=== PATIENT | male | born 1990 | race Caucasian/White ===

== ENCOUNTER → 2017-10-05 | Outpatient (CLI) | payer OTHER ==
[2017-10-08 07:21] LABS: CHLAMYDIA TRACH RNA*** NOT DETECTED (NOT DETECTED); GC (NEIS GONORRHOEAE)RNA** NOT DETECTED (NOT DETECTED)
[2017-10-09 11:10] LABS: HERPES SIMPLEX AB IGG-1 < 0.90 INDEX (< 0.90); HERPES SIMPLEX AB IGG-2 3.91 INDEX (< 0.90)
== END | disposition home or self-care (01) ==
LOC: C.LAB 17:22
PROVIDERS: ATTEND Internal Medicine
DX: Z72.51 High risk heterosexual behavior (principal)

== ENCOUNTER → 2018-03-19 | Outpatient (CLI) | payer OTHER ==
--- NOTE | 2018-03-19 11:45 | DIAGNOSTIC IMAGING REPORT ---
RIGHT SHOULDER 3 VIEWS CLINICAL HISTORY: Right shoulder pain. FINDINGS: 3 views of the right shoulder are obtained. No prior studies are available for comparison at the time of dictation. The skeletal structures are well mineralized. No fracture or dislocation is seen. The glenohumeral and acromioclavicular joints are normal in appearance. The overlying soft tissues are within normal limits. The visualized right lung parenchyma appears clear. IMPRESSION: Unremarkable radiographic assessment of the right shoulder. Electronically signed by: Jemal Alvarez M.D. 03/19/2018 11:43 AM Dictated Date/Time: 03/19/2018 11:42 AM
== END | disposition home or self-care (01) ==
LOC: C.RAD1850 11:14
PROVIDERS: ATTEND Nurse Practitioner Family
DX: M25.511 Pain in right shoulder (principal); Y99.0 Civilian activity done for income or pay

== ENCOUNTER 2025-07-26 16:44 | Inpatient (IN) ==
--- NOTE | 2025-07-26 17:05 | Emergency Department Note ---
Impression & Plan Cellulitis, Failure of outpatient treatment ED Provider Note ED Provider Note NAME: ALFIE SCHAFER AGE:34 SEX: Male : 1990 ARRIVES VIA: Private vehicle INFORMANT: Patient ED PROVIDER(s): Linda Hartman DO CHIEF COMPLAINT: Left foot infection HPI: This is a 34-year-old male who presents to the Emergency Department due to concern for worsening left foot infection. Patient states he began noticing mild discomfort in the foot on Sunday. He states by he noticed redness and an apparent lesion to the dorsal aspect of the left foot. He did go and was seen at urgent care and was started on Bactrim. He states he did outline the affected. He states since then the area has worsened despite taking the antibiotic. He states he had subjective fevers and chills. No vomiting or diarrhea. Patient is concerned for a spider bite after consulting [employer] although did not visibly see any spiders. No history of MRSA. Patient states he is not a diabetic. No other recent trauma or change in activity. PAST MEDICAL HISTORY:See Below PAST SURGICAL HISTORY:See Below FAMILY HISTORY:See Below SOCIAL HISTORY:See Below HOME MEDICATIONS:See Below ALLERGIES:See Below VITALS:See Below PHYSICAL EXAMINATION: GENERAL: alert, well appearing, well nourished, no distress, non-toxic EYE EXAM: normal conjunctiva, PERRL and EOM's grossly intact OROPHARYNX: no exudate, no erythema, lips, buccal mucosa, and tongue normal and mucous membranes are moist NECK: supple, no nuchal rigidity, no adenopathy, non-tender LUNGS: Clear to auscultation. Normal chest wall mechanics, no w/r/r HEART: no murmurs, S1 normal and S2 normal ABDOMEN: abdomen soft, non-tender, normo-active bowel sounds, no masses, no rebound or guarding. BACK: Back is symmetrical on inspection and there is no deformity, no midline tenderness, no CVA tenderness. SKIN: no rashes, petechiae, orbruising UPPER EXTREMITIES: upper extremities are grossly normal. FROM, nml pulses b/l. LOWER EXTREMITIES: No pitting edema. FROM, nml pulses b/l. LEft foot with large erythematous region to the dorsal aspect of the left foot with central area of unroofed and weeping vesicles/bullae, no necrosis, no crepitus, erythema extends outside previously demarcated line of both posteriorly and anteriorly, no other ulcerations, no petechiae, normal cap refill, no joint effusions, no ascending lymphangitic streaking NEURO EXAM: Normal sensorium, cranial nerves II-XII grossly intact, normal speech, no facial droop,nogross weakness of arms, no gross weakness of legs. Gross sensation intact. No ataxia. Vital Signs: reviewed and remarkable Differential Diagnosis: cellulitis, abscess, MRSA infection, DVT, necrotizing fasciitis, dermatitis, drug eruption, as well as others were entertained. MEDICAL DECISION MAKING: THis is a 34 yo male who presents with concern for left foot infection. He was tachycardic on arrival but VS otherwise stable. Labs drawn and sent, IV established, cultures obtained and he was monitored on telemetry. He was started on IVF and given IV antibiotics. He was sent for CT foot additionally. Given concern for appearance of the involved area, progression despite outpatient antibiotics, and concern for evolving sepsis, case discussed with the hospitalist team for additional evaluation and mgmt. Consultation(s): 1930: Discussed with Dr. Antunez, [place] hospitalist team, for additional evaluation and mgmt. ER Treatment Provided: See below Diagnostics Interpreted By Me: -ECG: Sinus tachycardia at 115, normal axis, normal intervals, no acute ST/T wave changes -Cardiac Monitoring: An order was placed for continuous cardiac monitoring. The monitor shows a rate of 102 with sinus tachycardia rhythm. -Laboratory studies: As stated above and show below. -Imaging studies: ct foot:no clear abscess or osteo Triage Nursing Note Reviewed Prior/Outside Records Reviewed Past Med/Surg History Problem List (Updated 07/27/25 @ 21:40 by Linda Hartman DO) Failure of outpatient treatment (Acute) Cellulitis (Acute) Abscess of left foot Cellulitis of left foot Overweight (BMI 25.0-29.9) Tinea pedis Erectile dysfunction HSV (herpes simplex virus) infection Medical History Vitamin D deficiency Class 1 obesity due to excess calories in adult Encounter for vasectomy counseling Soft tissue mass Eczema of right external ear Infertility counseling Surgical History H/O wisdom tooth extraction Family History Unknown Hypertension Heart disease Stroke syndrome Diabetes Hyperlipidemia Social History Smoking Status: Light tobacco smoker Second Hand Exposure: Yes; Do You Dip or Chew Tobacco: No; Hx Alcohol Use: Yes Alcohol type: beer, wine and hard liquor Alcohol Intake Frequency: 2-3 x/Week Hx Substance Use: No Preferred Language: Bengali Communication Ability: Effective Crew Car Driver Required: No marital status: Single Current Living Situation: Parent Current Living Situation Comment: Lives with father current occupational status: employed 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 Feels Safe at Home: Yes Safety Concerns: Feels Safe At This Time Diet: regular caffeine: Yes Dental Care, Regularly: Yes Physical Activity Frequency: Does not Exercise Assistive Devices: None Allergies Allergies Allergy/AdvReac Type Severity Reaction Status Date / Time No Known Allergies Allergy Verified 06/22/25 09:36 Home Meds Home Medications Medication Instructions Recorded Confirmed clotrimazole 1 % topical cream 1 applic topical BID PRN Itching 07/26/25 07/26/25 sulfamethoxazole 800 1 tab PO BID 07/26/25 07/26/25 mg-trimethoprim 160 mg tablet Previous Rx's Medication Instructions Recorded tadalafil 10 mg tablet (Cialis) 10 mg PO DAILY PRN sexual activity 06/22/25 #6 tabs valacyclovir 1 gram tablet 1,000 mg PO DAILY suppressive 06/22/25 therapy #90 tabs Results & Data (ED) Vital Signs Vital Signs - 24 hr 07/26/25 16:49 07/26/25 17:31 07/26/25 17:31 Temperature 37.0 C Temperature Source Temporal Artery Scan Pulse Rate 112 H 106 H Pulse Rate [Right Finger] 102 H Pulse Rate from SpO2 Sensor Respiratory Rate 18 16 16 Respiratory Effort / Characteristics Non-Labored Spontaneous Non-Labored Spontaneous Respiratory Depth Normal Normal Blood Pressure 160/98 H Blood Pressure [Left Arm] 152/84 H Blood Pressure Mean 118 Blood Pressure Mean [Left Arm] 106 Blood Pressure Position Sitting Pulse Oximetry 97 96 96 Oxygen Delivery Method Room Air Room Air Room Air Sepsis Recent Fever Within 48 Hours No Sepsis New/Unexplained Change in Mental Status N/A Sepsis Action Taken by Nursing No Action Required 07/26/25 17:53 07/26/25 19:12 Temperature Temperature Source Pulse Rate 107 H 82 Pulse Rate [Right Finger] Pulse Rate from SpO2 Sensor 82 Respiratory Rate 21 Respiratory Effort / Characteristics Respiratory Depth Blood Pressure Blood Pressure [Left Arm] Blood Pressure Mean Blood Pressure Mean [Left Arm] Blood Pressure Position Pulse Oximetry 96 Oxygen Delivery Method Room Air Sepsis Recent Fever Within 48 Hours Sepsis New/Unexplained Change in Mental Status Sepsis Action Taken by Nursing Laboratory Data 07/27/25 06:48 07/27/25 06:48 Lab Results 07/26/25 Range/Units 17:18 WBC 17.20 H (4.8-10.8) K/ul RBC 5.20 (4.70-6.10) M/uL Hgb 14.6 (14.0-18.0) g/dl Hct 44.1 (42.0-52.0) % MCV 84.8 (80.0-100.0) fL MCH 28.1 (25.0-34.0) pg MCHC 33.1 (32.0-36.0) g/dL RDW Std Deviation 38.4 (36.4-46.3) fL RDW Coeff of Michelle 12.5 (11.5-14.5) % Plt Count 269 (130-400) K/uL MPV 9.7 (9.4-12.4) fL Immature Gran % (Auto) 0.3 % Neut % (Auto) 82.5 % Lymph % (Auto) 8.5 % Carson % (Auto) 8.2 % Eos % (Auto) 0.2 % Baso % (Auto) 0.3 % Neut # (Auto) 14.19 H (1.40-6.50) K/uL Lymph # (Auto) 1.46 (1.20-3.40) K/uL Carson # (Auto) 1.41 H (0.11-0.59) K/uL Eos # (Auto) 0.03 (0.00-0.50) K/uL Baso # (Auto) 0.06 (0.00-0.20) K/uL Immature Gran # (Auto) 0.05 (0.01-0.20) K/uL PT 10.9 (9.0-12.0) Seconds INR 1.0 (0.9-1.1) Sodium 136 (136-145) mmol/L Potassium 3.9 (3.5-5.1) mmol/L Chloride 105 (98-107) mmol/L Carbon Dioxide 24 (21-32) mmol/L Anion Gap 7 (3-11) BUN 13 (6-23) mg/dl Creatinine 1.00 (0.6-1.4) mg/dl Est Cr Clr Drug Dosing 118.8 ml/min eGFR 101.28 BUN/Creatinine Ratio 13.0 (10-20) Glucose 109 H (70-99(Fasting)) mg/dl Lactate 1.7 (0.4-2.0) mmol/L Calcium 9.2 (8.6-10.3) mg/dl Magnesium 2.3 (1.7-2.4) mg/dl Total Bilirubin 0.6 (0.2-1.0) mg/dl Direct Bilirubin 0.2 (0-0.2) mg/dl AST 21 (13-39) U/L ALT 16 (7-52) U/L Alkaline Phosphatase 77 (34-104) U/L Total Creatine Kinase 165 (30-223) U/L Total Protein 7.7 (6.0-8.3) gm/dl Albumin 4.1 (3.4-5.0) gm/dl Procalcitonin 0.02 (0-0.5) ng/ml Administered Medications Acetaminophen (Acetaminophen 325 Mg Tab) 650 mg PO Q4H PRN PRN Reason: pain/fever Stop: 08/25/25 21:23 Last Admin: 07/27/25 20:25 Dose: 650 mg Documented By: Admin: 07/27/25 01:01 Dose: 650 mg Documented By: emmanuelle Enoxaparin Sodium (Enoxaparin Inj 40 Mg/0.4 Ml Syr) 40 mg SQ HS JONNIE Stop: 08/25/25 21:29 Last Admin: 07/27/25 20:23 Dose: 40 mg Documented By: Admin: 07/26/25 21:42 Dose: 40 mg Documented By: emmanuelle Piperacillin Sod/Tazobactam Sod (Zosyn) 4.5 gm in 100 mls @ 25 mls/hr IV Q8H JONNIE; Protocol Stop: 08/03/25 03:59 Last Admin: 07/27/25 20:23 Dose: 25 mls/hr Documented By: Infusion: 07/27/25 15:52 Dose: Infused Documented By: Admin: 07/27/25 11:51 Dose: 25 mls/hr Documented By: Infusion: 07/27/25 07:31 Dose: Infused Documented By: Admin: 07/27/25 03:17 Dose: 25 mls/hr Documented By: emmanuelle Daptomycin 700 mg/ Syringe 14 mls @ 7 mls/min IV Q24H JONNIE; Protocol Stop: 08/03/25 17:59 Last Admin: 07/27/25 18:06 Dose: 7 mls/min Documented By: ARNEL Valacyclovir HCl (Valacyclovir Hcl 500 Mg Tablet) 1,000 mg PO DAILY JONNIE Stop: 08/26/25 08:59 Last Admin: 07/27/25 09:05 Dose: 1,000 mg Documented By: ARNEL Discontinued Medications Acetaminophen (Acetaminophen 325 Mg Tab) 650 mg PO NOW STA Stop: 07/27/25 10:09 Last Admin: 07/27/25 10:27 Dose: 650 mg Documented By: ARNEL Bupivacaine HCl (Bupivacaine 0.5 % 5 Mg/1 Ml Mpf 30ml Vial) Confirm Administered Dose 30 ml .ROUTE .STK-MED ONE Stop: 07/27/25 15:48 Last Admin: 07/27/25 16:46 Dose: 17 ml Documented By: [id number] Sodium Chloride (Nss) 1,000 mls @ 999 mls/hr IV .Q1H1M JONNIE Stop: 07/26/25 19:15 Last Infusion: 07/26/25 20:25 Dose: Infused Documented By: Admin: 07/26/25 18:48 Dose: 999 mls/hr Documented By: Infusion: 07/26/25 18:29 Dose: Infused Documented By: Admin: 07/26/25 17:28 Dose: 999 mls/hr Documented By: ZEV Ceftriaxone Sodium (Rocephin) 2,000 mg in 50 mls @ 100 mls/hr IV NOW STA Stop: 07/26/25 18:12 Last Infusion: 07/26/25 18:25 Dose: Infused Documented By: Admin: 07/26/25 17:55 Dose: 100 mls/hr Documented By: ZEV Daptomycin 500 mg/ Syringe 10 mls @ 5.75 mls/min IV NOW ONE; Protocol Stop: 07/26/25 18:01 Last Admin: 07/26/25 18:21 Dose: 5.75 mls/min Documented By: ZEV Piperacillin Sod/Tazobactam Sod (Zosyn) 4.5 gm in 100 mls @ 200 mls/hr IV ONE ONE; Protocol Stop: 07/26/25 21:59 Last Infusion: 07/26/25 22:29 Dose: Infused Documented By: Admin: 07/26/25 21:43 Dose: 200 mls/hr Documented By: emmanuelle Lactated Ringer's (Lr) 1,000 mls @ 125 mls/hr IV .Q8H JONNIE Stop: 07/27/25 16:29 Last Infusion: 07/27/25 19:23 Dose: Infused Documented By: Infusion: 07/27/25 17:26 Dose: 125 mls/hr Documented By: Infusion: 07/27/25 15:26 Dose: 0 mls/hr Documented By: Admin: 07/27/25 09:04 Dose: 125 mls/hr Documented By: Infusion: 07/27/25 08:50 Dose: Infused Documented By: Admin: 07/27/25 00:50 Dose: 125 mls/hr Documented By: emmanuelle Ioversol (Optiray 320 100ml) 93 ml IV ONCE ONE Stop: 07/26/25 18:06 Last Admin: 07/26/25 18:05 Dose: 93 ml Documented By: DAV Vancomycin HCl (Vancomycin Hcl 1000mg/20ml Vial) Confirm Administered Dose 50 mg .ROUTE .STK-MED ONE Stop: 07/27/25 16:38 Last Admin: 07/27/25 16:46 Dose: 1,000 mg Documented By: [id number] Imaging Data Radiologist's Impression: Foot CT 07/26/25 17:20 CT extremity left foot, with contrast History: Pain/weakness Comparison: None Technique: CT performed of the extremity with IV contrast. Dose reduction techniques were achieved by using automatic exposure control and/or adjustment of mA and/or kV according to patient size and/or use of iterative reconstruction technique. Findings: No fracture or dislocation. Joint spaces are normally aligned. Prominent soft tissue swelling overlying the dorsum of the foot. There appears to be a small skin based lesion, presumably representing the lesion or bite described in the history. Subjacent to the lesion in the subcutaneous tissues is an area of fluid, measuring 2.4 x 1.2 cm in the coronal plane, and approximately 1.9 cm in the AP dimension. The underlying bone is unremarkable. No aggressive osseous lesion. Impression: Extensive subcutaneous edema of the dorsum of the foot, where there is a tiny skin based lesion. Subjacent to the lesion, is a subcutaneous area of fluid, which appears incompletely well-formed, however which may represent phlegmon, and possibly an early or developing abscess, is not excluded. Electronically signed by Vinod Honeycutt 07-26-2025 7:00 PM Discharge Plan Visit Data Chief Complaint: Bite Stated Complaint: SPIDER BITE ON L FOOT ED Provider: Linda Hartman Discharge Problem: Cellulitis, Failure of outpatient treatment Patient Disposition: Admitted As Inpatient Condition: Fair Discharge Instructions Interventions: ED Discharge Assessment Last Done: 07/26/25 21:08
[2025-07-26] MEDS: SODIUM CHLORIDE 0.9% 1,000 ML IV SCH (17:28)
[2025-07-26 17:36] LABS: Hematocrit (blood only) 44.1 % (42.0-52.0); Hemoglobin 14.6 g/dl (14.0-18.0); Immature Granulocytes # (auto) 0.05 K/uL (0.01-0.20); Immature Granulocytes % (auto) 0.3 %; Mean Corpuscular Hemoglobin 28.1 pg (25.0-34.0); Mean Corpuscular Volume 84.8 fL (80.0-100.0); Platelet Count 269 K/uL (130-400); RDW Standard Deviation 38.4 fL (36.4-46.3); Red Blood Count 5.20 M/uL (4.70-6.10); White Blood Count 17.20 K/ul (4.8-10.8)
[2025-07-26] MEDS ORDERED: DAPTOmycin 575 MG in SYRINGE 0 ML IV ONE (17:54)
[2025-07-26 17:55] LABS: Alanine Aminotransferase 16.0 U/L (7-52); Albumin Level 4.1 gm/dl (3.4-5.0); Alkaline Phosphatase 77.0 U/L (34-104); Anion Gap 7.0 (3-11); Bilirubin,Total 0.6 mg/dl (0.2-1.0); Blood Urea Nitrogen 13.0 mg/dl (6-23); Calcium 9.2 mg/dl (8.6-10.3); Carbon Dioxide 24.0 mmol/L (21-32); Chloride 105.0 mmol/L (98-107); Creatine Kinase 165.0 U/L (30-223); Creatinine Clr Calc Pharmacy 118.8 ml/min; Glucose 109.0 mg/dl (70-99(Fasting)); Magnesium 2.3 mg/dl (1.7-2.4); Potassium 3.9 mmol/L (3.5-5.1); Sodium 136.0 mmol/L (136-145); Total Protein 7.7 gm/dl (6.0-8.3)
[2025-07-26] MEDS: cefTRIAXone SODIUM 2,000 MG/50 ML BAG IV STA (17:55)
[2025-07-26 18:01] LABS: INR 1.0 (0.9-1.1); Prothrombin Time 10.9 Seconds (9.0-12.0)
[2025-07-26] MEDS: OPTIRAY 320 100ml IV ONE (18:05)
[2025-07-26] MEDS: DAPTOmycin 500 MG in SYRINGE 0 ML IV ONE (18:21)
--- NOTE | 2025-07-26 19:00 | CT Scan Report ---
CT extremity left foot, with contrast History: Pain/weakness Comparison: None Technique: CT performed of the extremity with IV contrast. Dose reduction techniques were achieved by using automatic exposure control and/or adjustment of mA and/or kV according to patient size and/or use of iterative reconstruction technique. Findings: No fracture or dislocation. Joint spaces are normally aligned. Prominent soft tissue swelling overlying the dorsum of the foot. There appears to be a small skin based lesion, presumably representing the lesion or bite described in the history. Subjacent to the lesion in the subcutaneous tissues is an area of fluid, measuring 2.4 x 1.2 cm in the coronal plane, and approximately 1.9 cm in the AP dimension. The underlying bone is unremarkable. No aggressive osseous lesion. Impression: Extensive subcutaneous edema of the dorsum of the foot, where there is a tiny skin based lesion. Subjacent to the lesion, is a subcutaneous area of fluid, which appears incompletely well-formed, however which may represent phlegmon, and possibly an early or developing abscess, is not excluded. Electronically signed by Vinod Honeycutt 07-26-2025 7:00 PM
--- NOTE | 2025-07-26 19:19 | History & Physical Report ---
Date of Service July 26, 2025 Assessment & Plan (1) Cellulitis of left foot: Plan 34-year-old male PMHx HSV, tinea pedis, and ED presenting for wound to the top of his L foot. His ED evaluation is significant for leukocytosis of 17.2 but with normal lactate, procalcitonin, and CK. L foot CT revealed subcutaneous edema and area that may represent phlegmon versus abscess. Admission for IV antibiotics for cellulitis with possible developing abscess versus phlegmon. #Cellulitis of left foot History worsening skin wound to top of L foot, unclear if insect bite, expanding erythema x 3-4 days [employer]. Not meeting criteria for sepsis at admission, mildly tachycardic on and off, but otherwise hemodynamically stable. Pain well controlled. No additional symptoms. Received Ceftriaxone, Daptomycin, and 2L NSS in ED. - CBC leukocytosis 17.2; PT/NR WNL; CMP grossly unremarkable; lactate 1.7, procalcitonin 0.02, CK 165 - CBC am - Blood + wound cx pending - CT L foot extensive subcutaneous edema and area that may represent phlegmon versus abscess - Zofran prn N/V - Acetaminophen prn fever/pain - Zosyn + Daptomycin IV - Consider ID consult #HSV- Valacyclovir - continue at admission, follow renal function, BMP am #ED- Tadalafil - HOLD Dispo: Admit, med/sx VTE Prophylaxis: Lovenox This document was dictated utilizing Mar[employer]. Please excuse any grammatical errors that may be secondary to use of this software. Admission and Anticipated Discharge Date Admission Date: 07/26/2025 History of Present Illness Chief Complaint: L foot infection Primary Care Provider: Dorian Cottrell, 34-year-old male PMHx HSV, tinea pedis, and ED presenting for wound to the top of his L foot. Reports that 3-4 days [employer] he noticed that on the top of his L foot he had a wound that appeared erythematous and had a pinpoint black lesion in the center most portion of it. Over the course of days leading up to arrival, the erythema and edema continued to worsen. He was seen by urgent care the day [facility] and provided with Bactrim which he took a total of 3 doses of so far. He states that he does not recall injury or an insect/spider bite to the area. He does keep his work boots on the landing strip outside of his home door, in the garage, but always has socks on prior to placing his foot in the boots. He denies know tick bites. He does admit to chills but no documented fevers. Took IBU and Advil ~ 1200 the day of arrival. Reports the discomfort is manageable, and he does not have any numbness/tingling to his LLE (or elsewhere). He has not had any calf pain or edema bilaterally. Overall, feels well. 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 He is able to ambulate on the limb without difficulties. Denies CP, SOB, palpitations, abdominal pain, N/V/D/C, fevers, URI symptoms, LUTS, weakness, syncope, or falls. He has not had this happen before. ED evaluation reveals CBC with leukocytosis to 17.2, H&H stable; PT/INR WNL; CMP WNL with exception of glucose 109; lactate 1.7; CK1 65; procalcitonin 0.02; L foot CT extensive subcutaneous edema of the dorsum of the foot, subcutaneous area of fluid may represent phlegmon versus developing abscess; EKG sinus tachycardia with possible LAE at 115 bpm.; Provided with 2L NSS, daptomycin 500 mg IV, and ceftriaxone 2 g IV in ED. Please see Dr. Antunez's attestation for adjustments/additions to treatment plan. Allergies Allergy/AdvReac Type Severity Reaction Status Date / Time No Known Allergies Allergy Verified 06/22/25 09:36 Home Medications Medication Instructions Recorded Confirmed Type tadalafil 10 mg tablet (Cialis) 10 mg PO DAILY PRN sexual activity 06/22/25 07/26/25 Rx #6 tabs valacyclovir 1 gram tablet 1,000 mg PO DAILY suppressive 06/22/25 07/26/25 Rx therapy #90 tabs clotrimazole 1 % topical cream 1 applic topical BID PRN Itching 07/26/25 07/26/25 History sulfamethoxazole 800 1 tab PO BID 07/26/25 07/26/25 History mg-trimethoprim 160 mg tablet Past Med/Surg History Problem List (Updated 07/26/25 @ 20:03 by Laith Foley PA-C) Cellulitis of left foot Overweight (BMI 25.0-29.9) Tinea pedis Erectile dysfunction HSV (herpes simplex virus) infection Medical History Vitamin D deficiency Class 1 obesity due to excess calories in adult Encounter for vasectomy counseling Soft tissue mass Eczema of right external ear Infertility counseling Surgical History H/O wisdom tooth extraction Family History Unknown Hypertension Heart disease Stroke syndrome Diabetes Hyperlipidemia Social History Smoking Status: Never smoker Second Hand Exposure: Yes; Do You Dip or Chew Tobacco: No; Hx Alcohol Use: Yes Alcohol type: beer, wine and hard liquor Alcohol Intake Frequency: 2-3 x/Week Hx Substance Use: No Preferred Language: Mozambican Communication Ability: Effective Foot Orthopedist Required: No marital status: Single Current Living Situation: Parent Current Living Situation Comment: Lives with father current occupational status: employed 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 Feels Safe at Home: Yes Safety Concerns: Feels Safe At This Time Diet: regular caffeine: Yes Dental Care, Regularly: Yes Physical Activity Frequency: Does not Exercise Assistive Devices: None Review of Systems 2 Review of Systems: All systems reviewed & are unremarkable except as noted in Subjective Physical Exam 2 Physical Exam: General: No acute distress Skin: Warm and dry; LLE with erythematous and edematous lesion on dorsum of foot, no streaking (see image) Head: Normocephalic, atraumatic Eyes: PERRL, conjunctivae clear, sclera non-icteric ENT: External ear and ear canal without swelling; nose atraumatic; good dentition, tongue normal appearance, pharynx normal Neck: Supple, no LAD Cardio: RRR, no M/G/R, S1 and S2 normal Resp: No respiratory distress, Lungs CTA in all lobes bilaterally, no wheezes, rales, or rhonchi Abdomen: Soft, symmetric, nontender; No masses or hepatosplenomegaly; Bowel sounds normoactive MSK: No deformities; pulses palpable and equal; mild LLE edema at foot at site of wound; no calf tenderness or calf size discrepancies Neuro: Awake, alert; Sensation intact bilaterally; CN grossly intact Psych: Appropriate mood and affect; good judgement and insight. Results & Data Results & Data Vital Signs (Past 12 Hours) Vital Signs Temp Pulse Pulse Resp BP BP Pulse Ox 07/26/25 17:53 107 H 07/26/25 17:31 102 H 16 152/84 H 96 07/26/25 17:31 106 H 16 96 07/26/25 16:49 37.0 C 112 H 18 160/98 H 97 O2 Del Method 07/26/25 17:53 07/26/25 17:31 Room Air 07/26/25 17:31 Room Air 07/26/25 16:49 Room Air Laboratory Results 07/26/25 17:45 Gram Stain - Pending Foot,Left Wound Culture - Pending 07/26/25 17:28 Aerobic Blood Culture - Pending Blood Anaerobic Blood Culture - Pending 07/26/25 17:18 Aerobic Blood Culture - Pending Blood Anaerobic Blood Culture - Pending 07/26/25 17:18 WBC 17.20 H RBC 5.20 Hgb 14.6 Hct 44.1 MCV 84.8 MCH 28.1 MCHC 33.1 RDW Std Deviation 38.4 RDW Coeff of Michelle 12.5 Plt Count 269 MPV 9.7 Immature Gran % (Auto) 0.3 Neut % (Auto) 82.5 Lymph % (Auto) 8.5 Beckham % (Auto) 8.2 Eos % (Auto) 0.2 Baso % (Auto) 0.3 Neut # (Auto) 14.19 H Lymph # (Auto) 1.46 Beckham # (Auto) 1.41 H Eos # (Auto) 0.03 Baso # (Auto) 0.06 Immature Gran # (Auto) 0.05 PT 10.9 INR 1.0 Sodium 136 Potassium 3.9 Chloride 105 Carbon Dioxide 24 Anion Gap 7 BUN 13 Creatinine 1.00 Est Cr Clr Drug Dosing 118.8 eGFR 101.28 BUN/Creatinine Ratio 13.0 Glucose 109 H Lactate 1.7 Calcium 9.2 Magnesium 2.3 Total Bilirubin 0.6 Direct Bilirubin 0.2 AST 21 ALT 16 Alkaline Phosphatase 77 Total Creatine Kinase 165 Total Protein 7.7 Albumin 4.1 Procalcitonin 0.[address] 07/26/25 17:20 CT extremity left foot, with contrast History: Pain/weakness Comparison: None Technique: CT performed of the extremity with IV contrast. Dose reduction techniques were achieved by using automatic exposure control and/or adjustment of mA and/or kV according to patient size and/or use of iterative reconstruction technique. Findings: No fracture or dislocation. Joint spaces are normally aligned. Prominent soft tissue swelling overlying the dorsum of the foot. There appears to be a small skin based lesion, presumably representing the lesion or bite described in the history. Subjacent to the lesion in the subcutaneous tissues is an area of fluid, measuring 2.4 x 1.2 cm in the coronal plane, and approximately 1.9 cm in the AP dimension. The underlying bone is unremarkable. No aggressive osseous lesion. Impression: Extensive subcutaneous edema of the dorsum of the foot, where there is a tiny skin based lesion. Subjacent to the lesion, is a subcutaneous area of fluid, which appears incompletely well-formed, however which may represent phlegmon, and possibly an early or developing abscess, is not excluded. Electronically signed by Vinod Honeycutt 07-26-2025 7:00 PM Medications Administered 2L NSS Daptomycin 500 mg IV Ceftriaxone 2 g IV ECG Additional Comments: Sinus tachycardia, possible LAE 115 bpm, VT 136, QRS 84, QT/QTc 308/426, PRT 49/56/38 Code Status & VTE Plan Code Status Full Supervising Physician Co-Signing Physician Notes Patient seen and examined, chart reviewed, case discussed with KAILEE Ozuna and I agree with the assessment and plan as above. In brief, patient is a 34yo male presenting with progressive infection on left foot. Unsure if it may have started with a spider bite? Has been progressing. On exam patient is afebrile, NAD Wound on LLE as above, area of erythema and warmth, open lesion with purulent drainage. No crepitus, bullae or streaking Labs and images reviewed Assessment/Plan -Daptomycin and Zosyn for now -Monitor for improvement -Follow cultures -LR added 125mL/hr x 2L -Remainder as above PG Care Time/CCT Total # of Minutes Spent Total Time Spent with Patient: Total time spent is greater than 50% in coordination of care (as documented) at patient's floor/unit and/or counseling patient: Coding Level of Care Code 13987 INT INP/OBS CARE 3/75MIN Diagnoses Cellulitis of left foot L03.116
[2025-07-26] MEDS ORDERED: MELATONIN 3 MG TAB PO PRN (21:24)
[2025-07-26] MEDS ORDERED: POLYETHYLENE (MIRALAX) 17 GM PACK PO PRN (21:24)
[2025-07-26] MEDS ORDERED: ONDANSETRON INJ 2 MG/ML 2 ML VIAL IV PRN (21:24)
[2025-07-26] MEDS: ENOXAPARIN INJ 40 MG/0.4 ML SYR SQ SCH (21:42)
[2025-07-26] MEDS: PIPERACILLIN/TAZOBACTAM 4.5 GM/100 ML BAG IV ONE (21:43)
[2025-07-27] MEDS: LACTATED RINGER'S 1,000 ML IV SCH (00:50)
[2025-07-27] MEDS: ACETAMINOPHEN 325 MG TAB PO PRN (01:01)
[2025-07-27] MEDS: PIPERACILLIN/TAZOBACTAM 4.5 GM/100 ML BAG IV SCH (03:17)
[2025-07-27 07:02] LABS: Hematocrit (blood only) 39.9 % (42.0-52.0); Hemoglobin 13.9 g/dl (14.0-18.0); Mean Corpuscular Hemoglobin 29.7 pg (25.0-34.0); Mean Corpuscular Volume 85.3 fL (80.0-100.0); Platelet Count 237 K/uL (130-400); RDW Standard Deviation 38.5 fL (36.4-46.3); Red Blood Count 4.68 M/uL (4.70-6.10); White Blood Count 14.24 K/ul (4.8-10.8)
[2025-07-27 07:37] LABS: Anion Gap 6.0 (3-11); Blood Urea Nitrogen 10.0 mg/dl (6-23); Calcium 8.5 mg/dl (8.6-10.3); Carbon Dioxide 25.0 mmol/L (21-32); Chloride 106.0 mmol/L (98-107); Creatinine Clr Calc Pharmacy 129.4 ml/min; Glucose 111.0 mg/dl (70-99(Fasting)); Potassium 4.0 mmol/L (3.5-5.1); Sodium 137.0 mmol/L (136-145)
--- NOTE | 2025-07-27 09:44 | Hospitalist Progress Note ---
Date of Service July 27, 2025 Assessment & Plan (1) Cellulitis of left foot: Plan 34-year-old male PMHx HSV, tinea pedis, and ED presenting for wound to the top of his L foot. His ED evaluation is significant for leukocytosis of 17.2 but with normal lactate, procalcitonin, and CK. L foot CT revealed subcutaneous edema and area that may represent phlegmon versus abscess. Patient was admitted for IV antibiotics for cellulitis and possible developing abscess versus phlegmon. #Cellulitis of left foot | ? 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 Not meeting criteria for sepsis at admission, mildly tachycardic on and off, but otherwise hemodynamically stable. Pain well controlled. No additional symptoms. Received Ceftriaxone, Daptomycin, and 2L NSS in ED. Leukocytosis, WBC trend: 17.2 -> 14.2 Follow current blood/wound cultures CT L foot extensive subcutaneous edema and area that may represent phlegmon versus abscess Acetaminophen as needed for fever/pain Zosyn 4.5 mg IV q8h Daptomycin 500 mg IV q24h Daily wound care Wound care nurse consult appreciated Podiatry consult appreciated in the setting of potential necrosis from spider bite Will plan for OR base I&D on the afternoon of 07/27 NPO prior to operation If patient clinically deteriorates or worsens following I&D, will plan for left foot MRI and touch base with infectious disease #HSV- Valacyclovir - continue at admission, follow renal function, BMP am #ED- Tadalafil - HOLD Dispo: Continued stay on MedSurg VTE Prophylaxis: Lovenox This document was dictated utilizing [employer]. Please excuse any grammatical errors that may be secondary to use of this software. Admission and Anticipated Discharge Date Admission Date: July 26, 2025 Subjective Mr. Taylor reports he is still having a "burning" pain on the dorsal aspect of his left foot. He rates the pain 5 out of 10 at present, and reports that it is worse with movements. He reports that is not limiting his mobility, and he has been able to get up to use the restroom throughout the day. No radiation of pain to the ankle or up the leg. No prior history of MRSA infections. Patient began having purulent drainage from the wound yesterday. He first noticed redness on his foot last , but did not notice the "black aguirre" on the dorsal aspect of his foot until Sunday around 3:30 PM. He reported it was rapidly expanding and he started marking it with a marker. Patient reports she does not go to the gym or any other place where he might have picked up a MRSA infection. However he did see a spider in his house recently, and is unsure if it was potentially a brown recluse or a gibson spider. 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 While he denies fevers at home, he woke up on Sunday morning with "chills". ROS: Patient endorses chills, and pain in the dorsal aspect of his left foot. Patient denies fevers, chest pain, SOB, abdominal pain, N/V/D, or numbness or tingling in the left foot. Review of Systems Review of Systems: See HPI above Physical Exam Physical Exam: General: no acute distress; pleasant affect; non-toxic appearing; well- nourished; cooperative; SpO2 98% on RA HEENT: normocephalic, atraumatic; no scleral icterus; PERRLA; vision and hearing grossly intact Neck: supple; no lymphadenopathy; trachea midline Skin: warm, dry without signs of tenting; no cyanosis; no rashes, bruising, lesions, or erythema noted CV: chest wall NTP; RRR; S1/S2 normal; no murmurs/rubs/gallops; pulses intact and symmetric at radial, DP, and PT Lungs: no acute respiratory distress; symmetrical chest wall expansion; clear breath sounds across all lung johnson w/o adventitious sounds; no wheezing ABD: Soft, NTP; BS present; no rebound/guarding; no distention MSK: no tics or fasciculations; no edema noted in the LEs b/l, nonerythematous Left foot: Dorsal aspect left foot is erythematous/edematous; mildly TTP; fluid- filled pocket appreciated over the dorsal aspect of the foot; recently bandaged; left ankle is NTP; no lymphangitis or streaking appreciated; patient demonstrates ability to wiggle toes, plantarflex, and dorsiflex without limited mobility; NV intact Neuro: A&Ox3; normal mood and affect; fluent speech; no focal deficits; patient reports sensation is intact and symmetric in lower extremities bilaterally/feeling touch at the toes Results & Data Results & Data Vital Signs (Past 12 Hours) Vital Signs Temp Pulse Resp BP Pulse Ox O2 Del Method 07/27/25 07:15 36.7 C 60 16 132/79 98 Room Air PG Care Time/CCT Total # of Minutes Spent Total Time Spent with Patient: Total time spent is greater than 50% in coordination of care (as documented) at patient's floor/unit and/or counseling patient: [place] [address] SUB INP/OBS CARE 2/35MIN Patient Type Established History Comprehensive Exam Comprehensive Medical Decision Making Moderate Complexity Diagnoses Cellulitis of left foot L03.116
--- NOTE | 2025-07-27 10:14 | Electrocardiogram Report ---
Test Reason : Blood Pressure : */* mmHG Vent. Rate : 115 BPM Atrial Rate : 115 BPM P-R Int : 136 ms QRS Dur : 84 ms QT Int : 308 ms P-R-T Axes : 49 56 36 degrees QTcB Int : 426 ms Sinus tachycardia Possible Left atrial enlargement Borderline ECG No previous ECGs available Confirmed by Velasquez Teresa ([id number]) on 07/27/2025 10:13:43 AM Referred By: REFERRED SELF Confirmed By: Velasquez Teresa
[2025-07-27] MEDS: ACETAMINOPHEN 325 MG TAB PO STA (10:27)
--- NOTE | 2025-07-27 13:47 | Podiatry Consultation ---
Date of Consultation July 27, 2025 Assessment & Plan (1) Cellulitis of left foot: (2) Abscess of left foot: Plan On clinical exam I am expressing fluid from what appears to be multiple slightly compartmentalized areas within the subcutaneous tissue of the dorsum of the left foot. Patient is added to the operating room schedule for OR based incision and drainage of the left foot this afternoon. He reports he did have piece of dry toast and an egg for breakfast around 7:00 this morning. Patient remained n.p.o. from breakfast until postop I&D. -White blood count is improved from 17.2 on admission to 14.2 today - CT of the left foot showing subcutaneous fluid collection at the dorsum of the foot measuring 2.4 x 1.2 x 1.9 cm. Underlying bone is unremarkable. - Blood culture 07/26/2025: Pending - Culture left foot 07/26/2025: Preliminary result growing Staph aureus. Sensitivities pending - Okay to weight-bear as tolerated the left foot. History of Present Illness Reason for Consultation: Abscess dorsal left foot Attending Physician: Chalo Manjarrez History of Present Illness Patient reports area of soft tissue irritation to the dorsum of the left foot first noticed this past Sunday with a small central wound and mild erythema and edema which progressed until Sunday. Denies trauma to the area of injury. Reports fever and chills. Denies nausea, vomiting, shortness of breath, chest pain, diarrhea. On Sunday patient was seen by urgent care and received a prescription for Bactrim. He reports taking 3 doses of Bactrim and woke up Sunday morning with increased redness and swelling as well as drainage from the right foot which prompted to visit the emergency department. In the emergency department he is found to have leukocytosis with a white count of 17.2. Wound culture and blood cultures collected in the emergency department. CT exam of the left foot showing subcutaneous edema and abscess to the dorsal foot. Patient is admitted and initiated on IV Zosyn and daptomycin. Allergies Allergy/AdvReac Type Severity Reaction Status Date / Time No Known Allergies Allergy Verified 06/22/25 09:36 Home Medications Medication Instructions Recorded Confirmed Type tadalafil 10 mg tablet (Cialis) 10 mg PO DAILY PRN sexual activity 06/22/25 07/26/25 Rx #6 tabs valacyclovir 1 gram tablet 1,000 mg PO DAILY suppressive 06/22/25 07/26/25 Rx therapy #90 tabs clotrimazole 1 % topical cream 1 applic topical BID PRN Itching 07/26/25 07/26/25 History sulfamethoxazole 800 1 tab PO BID 07/26/25 07/26/25 History mg-trimethoprim 160 mg tablet Patient History Medical History Vitamin D deficiency Class 1 obesity due to excess calories in adult Encounter for vasectomy counseling Soft tissue mass Eczema of right external ear Infertility counseling Surgical History H/O wisdom tooth extraction Family History Unknown Hypertension Heart disease Stroke syndrome Diabetes Hyperlipidemia Social History Smoking Status: Never smoker Second Hand Exposure: Yes; Do You Dip or Chew Tobacco: No; Hx Alcohol Use: Yes Alcohol type: beer, wine and hard liquor Alcohol Intake Frequency: 2-3 x/Week Hx Substance Use: No Preferred Language: Chadian Communication Ability: Effective Transcript Clerk Required: No marital status: Single Current Living Situation: Parent Current Living Situation Comment: Lives with father current occupational status: employed current occupation: [employer] Feels Safe at Home: Yes Safety Concerns: Feels Safe At This Time Diet: regular caffeine: Yes Dental Care, Regularly: Yes Physical Activity Frequency: Does not Exercise Assistive Devices: None Review of Systems Review of Systems: Reports fever and chills prior to admission. No issues since time of admission. Denies nausea, vomiting, fever, chills, shortness of breath, chest pain. Reports mild to moderate pain in the left foot. Physical Exam Physical Exam: Const: Appears well developed and well nourished. No signs of acute distress present. CV: Extremities: No cyanosis or edema. Capillary refill time is less than 2 seconds all digits of the bilateral foot. Posterior tibial and dorsalis pedis pulses are palpable bilateral. Neuro: Sensation intact to light touch in all areas of the foot and ankle. Psych: Mood/Affect: Mood is normal. Affect is normal. Cognition: Orientation is intact to person, place and time. Focused lower extremity musculoskeletal exam: Leg: No pain with compression of the calf muscle. Ankles: Normal to inspection and palpation. No swelling bilaterally. No tenderness bilaterally. Motor strength is intact. Range of motion pain-free and unlimited. Feet: Open wound to the dorsal aspect of the left foot with multiple areas extending into the subcutaneous tissue with purulent drainage. Upon compression of the surrounding soft tissues continually able to express fluid which appears to be multifocal abscesses which are draining individually over 1 large fluid- filled area. Erythema and edema isolated to the dorsum of the foot. No lymphangitis or streaking. Patient is able to tolerate compression of the surrounding soft tissues quite well despite level of soft tissue irritation. Results & Data Vital Signs (Past 12 Hours) Vital Signs Temp Pulse Resp BP Pulse Ox O2 Del Method 07/27/25 07:15 36.7 C 60 16 132/79 98 Room Air PG Care Time/CCT Total # of Minutes Spent Total Time Spent with Patient: Total time spent is greater than 50% in coordination of care (as documented) at patient's floor/unit and/or counseling patient: Coding Level of Care Code 18405 IN/OBS CONSULT LVL 4,60M Diagnoses Cellulitis of left foot L03.116 Abscess of left foot L02.612
[2025-07-27] MEDS ORDERED: PROPOFOL IV EMULSION 10 MG/ML 20 ML VIAL IV ONE ×2 (15:53→15:57)
[2025-07-27] MEDS ORDERED: ONDANSETRON INJ 2 MG/ML 2 ML VIAL ONE (15:53)
[2025-07-27] MEDS ORDERED: LIDOCAINE 2% 2 ML VIAL/AMP(20MG/ML) INFIL ONE (15:53)
[2025-07-27] MEDS ORDERED: KETAMINE HCL 10MG/ML SYR ONE (15:53)
--- NOTE | 2025-07-27 16:04 | Anesthesiology Consultation ---
Date of Service July 27, 2025 Assessment & Plan Chart Review Chart Review: Acceptable Risk for Surgery and Patient NOT seen in Pre Admission Testing Consults Requested none ASA ASA1 Proposed Anesthesia Anesthesia Type: General and MAC Risk / Benefits Reviewed With: PT / POA / Parent / Guardian, Accepts Plan and Informed Consent Obtained History Surgery Operation Date: 07/27/25 09:55 Proposed Procedures p Left Foot Incision and Drainage - Paul Ashok Cartagena DPM Height/Weight Height: 5 ft 10.5 in Weight: 95.3 kg Allergies Allergy/AdvReac Type Severity Reaction Status Date / Time No Known Allergies Allergy Verified 06/22/25 09:36 Medications Home Medications Medication Instructions Recorded Confirmed Last Taken tadalafil 10 mg tablet (Cialis) 10 mg PO DAILY PRN sexual activity 06/22/25 07/26/25 Unknown #6 tabs valacyclovir 1 gram tablet 1,000 mg PO DAILY suppressive 06/22/25 07/26/25 07/26/25 therapy #90 tabs clotrimazole 1 % topical cream 1 applic topical BID PRN Itching 07/26/25 07/26/25 07/23/25 sulfamethoxazole 800 1 tab PO BID 07/26/25 07/26/25 07/26/25 15:00 mg-trimethoprim 160 mg tablet Active Medications Generic Name Dose Route Start Last Admin Trade Name Freq PRN Reason Stop Dose Admin Acetaminophen 650 mg 07/26/25 21:24 07/27/25 01:01 Acetaminophen 325 Mg Tab PO 08/25/25 21:23 650 mg Q4H PRN Administration pain/fever Enoxaparin Sodium 40 mg 07/26/25 21:30 07/26/25 21:42 Enoxaparin Inj 40 Mg/0.4 Ml Syr SQ 08/25/25 21:29 40 mg HS JONNIE Administration Piperacillin Sod/Tazobactam Sod 4.5 gm in 100 mls @ 25 mls/hr 07/27/25 04:00 07/27/25 15:52 Zosyn IV 08/03/25 03:59 Infused Q8H JONNIE Infusion Protocol Lactated Ringer's 1,000 mls @ 125 mls/hr 07/27/25 00:30 07/27/25 15:26 Lr IV 07/27/25 16:29 0 mls/hr .Q8H JONNIE Infusion Valacyclovir HCl 1,000 mg 07/27/25 09:00 07/27/25 09:05 Valacyclovir Hcl 500 Mg Tablet PO 08/26/25 08:59 1,000 mg DAILY JONNIE Administration NPO Date Last Intake of Fluids: 07/27/25 Time Last Intake of Fluids: 07:00 Date Last Intake of Solids: 07/27/25 Time Last Intake of Solids: 07:00 Past Medical History Medical History Vitamin D deficiency Class 1 obesity due to excess calories in adult Encounter for vasectomy counseling Soft tissue mass Eczema of right external ear Infertility counseling Past Family History Family History Unknown Hypertension Heart disease Stroke syndrome Diabetes Hyperlipidemia Past Surgical History Surgical History H/O wisdom tooth extraction Past Anesthesia History No Hx of Anesthesia Complications and No Family Hx of Anesthesia Complications History of PONV No Hx of PONV and No Hx of Motion Sickness Social History Smoking Status: Light tobacco smoker Do You Dip or Chew Tobacco: No Hx Alcohol Use: Yes Alcohol type: beer, wine and hard liquor alcohol intake frequency: a few times a week Hx Substance Use: No Review of Systems ROS Unobtainable: All systems reviewed & are unremarkable except as noted in HPI & below Physical Exam Vital Signs Last Vital Signs Temp 36.9 C 07/27/25 15:35 Pulse 89 07/27/25 15:35 Resp 22 07/27/25 15:35 BP 146/99 H 07/27/25 15:35 Pulse Ox 96 07/27/25 15:35 O2 Del Method Room Air 07/27/25 15:35 ENMT Mouth: no TMJ abnormality Thyromental Distance: > or= 3.5 Finger Breadths Mallampati Class: II Neck normal visual inspection and trachea midline; neck extension not limited Respiratory normal respiratory effort Auscultation: lungs clear to auscultation bilaterally Cardiovascular Rate/Rhythm: regular rate and regular rhythm Heart Sounds: no murmur Musculoskeletal Spine: normal cervical ROM Extremities: full ROM of extremities Neurologic moves all extremities Psychiatric Orientation: alert and oriented x 3 Testing Laboratory Results 07/27/25 06:48 07/27/25 06:48 PT 10.9 Seconds (9.0-12.0) 07/26/25 17:18 INR 1.0 (0.9-1.1) 07/26/25 17:18 07/26/25 17:45 Gram Stain - Final Foot,Left Wound Culture - Preliminary Staphylococcus aureus
[2025-07-27] MEDS ORDERED: ONDANSETRON INJ 2 MG/ML 2 ML VIAL IV PRN (16:33)
[2025-07-27] MEDS ORDERED: ATROPINE SULFATE 0.1 MG/ML 10ML SYR IV PRN (16:33)
[2025-07-27] MEDS: VANCOMYCIN HCL 1000MG/20ML VIAL ONE (16:46)
[2025-07-27] MEDS: BUPIVACAINE 0.5 % 5 MG/1 ML MPF 30ML VIAL ONE (16:46)
--- NOTE | 2025-07-27 16:49 | Post Operative Brief Note ---
PG Immediate Post Op with CF Date of Surgery July 27, 2025 Pre & Post Diagnosis Operation Date: 07/27/25 09:55 Pre-Op Diagnosis: Left foot abscess Post-Op Diagnosis: Left foot abscess I identified the patient and participated in the time-out.: Yes Procedure Operation Date: 07/27/25 09:55 Actual Procedures p Left Foot Incision and Drainage(Left) - Paul Cartgaena DPM Surgeon Paul Cartagena DPM Cost Estimator none Estimated Blood Loss 10 Findings Consistent with Post-Op Diagnosis Specimens Specimen Description: Culture 1. Left Foot Complications none
--- NOTE | 2025-07-27 17:06 | Anesthesiology Progress Note ---
Date of Service July 27, 2025 Anesthesia Post Procedure Vital Signs Vital Signs: Temp Pulse Pulse Pulse Resp BP BP 07/27/25 17:00 92 H 18 07/27/25 16:51 36.6 C 84 18 07/27/25 15:35 36.9 C 89 22 146/99 H 07/27/25 14:57 36.6 C 83 16 130/86 07/27/25 07:15 36.7 C 60 16 132/79 07/26/25 21:30 36.7 C 116 H 18 151/85 H 07/26/25 21:24 36.7 C 116 H 18 151/85 H 07/26/25 21:21 36.7 C 116 H 18 151/85 H 07/26/25 21:08 109 H 16 07/26/25 20:06 98 H 21 136/95 07/26/25 19:53 97 H 16 136/95 07/26/25 19:12 82 21 07/26/25 17:53 107 H 07/26/25 17:31 102 H 16 152/84 H 07/26/25 17:31 106 H 16 BP Pulse Ox O2 Del Method 07/27/25 17:00 136/80 97 Room Air 07/27/25 16:51 132/74 96 Room Air 07/27/25 15:35 96 Room Air 07/27/25 14:57 100 Room Air 07/27/25 07:15 98 Room Air 07/26/25 21:30 96 Room Air 07/26/25 21:24 96 Room Air 07/26/25 21:21 96 Room Air 07/26/25 21:08 95 Room Air 07/26/25 20:06 94 Room Air 07/26/25 19:53 98 Room Air 07/26/25 19:12 96 Room Air 07/26/25 17:53 07/26/25 17:31 96 Room Air 07/26/25 17:31 96 Room Air Transfer of Care Handoff Completed per policy Notes Mental Status: alert / awake / arousable and participated in evaluation Patient Amnestic to Procedure: Yes Nausea / Vomiting: adequately controlled Pain: adequately controlled Airway Patency, RR, SpO2: stable & adequate BP & HR: stable & adequate Hydration State: stable & adequate Anesthetic Complications: no major complications apparent and Pt Satisfied with anesthetic care
[2025-07-27] MEDS: DAPTOmycin 700 MG in SYRINGE 0 ML IV SCH (18:06)
--- NOTE | 2025-07-27 22:59 | Operative Report ---
PG Post Operative Report Pre & Post Diagnosis Operation Date: 07/27/25 09:55 Pre-Op Diagnosis: Left foot abscess Post-Op Diagnosis: Left foot abscess I identified the patient and participated in the time-out.: Yes Procedure Operation Date: 07/27/25 09:55 Actual Procedures p Left Foot Incision and Drainage(Left) - Paul Cartagena DPM Surgeon Paul Cartagena DPM Azure Architect none Estimated Blood Loss 10 Findings Consistent with Post-Op Diagnosis Specimens Deep soft tissue culture intraoperative left foot Drains Quarter inch iodoform packing gauze placed within the wound Description of Procedure Patient was brought to the operating room placed on the operating table in the supine position. Following IV sedation local anesthesia was obtained about the patient's left ankle utilizing a total of 17 cc of half percent Marcaine plain in a modified ankle block fashion. Timeout is held confirming correct patient, side, site, procedure with all necessary parties confirming. The left lower extremity was scrubbed prepped and draped in usual aseptic fashion to the level of the ankle. Attention was directed to the dorsal aspect of the patient's left foot where open wound is noted with purulent drainage. Review of MRI of the left foot indicates a 2.4 x 1.2 x 1.9 cm abscess in the subcutaneous tissue at the dorsal left foot. There is several small openings within a 2 cm diameter superficial wound that are draining purulent fluid on compression of the surrounding soft tissues. Larger central open wound is explored with a [place] elevator and noted to extend from proximal lateral to the distal medial traversing the wound with undermining for 3 cm proximal to the initial wound and 2 cm distal. 15 blade was utilized to create an incision through the skin which is carried deep through subcutaneous tissue taking care to avoid all vital neural and vascular structures and all bleeders are cauterized as necessary. Dissection is carried deep to the level of the abscess cavity. Approximately 5 cc of purulent drainage is expressed from the void and cultured with a culture swab. Wound was flushed with copious amounts of normal sterile saline. Wound is debrided with a rongeur and curette to remove all necrotic nonviable soft tissue from the wound bed and the brar of the abscess. Wound is again flushed with copious amounts of normal sterile saline. Direct pressure and deep pressure is applied to the surrounding soft tissues circumferentially and no further purulent drainage is expressed from the wound. Wound bed is evaluated and noted to be free of any necrotic appearing tissue or purulent drainage. Approximately 0.4 g of vancomycin powder are placed within the wound bed and some of the smaller tunneling areas to the medial lateral and proximal wound. Remainder of the wound is packed with quarter inch iodoform packing gauze. Dressed with 4 x 4 fluff gauze ABD pad Gladys and lightly applied Jordan bandage total dressings in place. Patient tolerated the procedure and anesthesia well. He is transferred to the recovery room with vital signs stable and vascular status intact to all digits of the left foot. Following a brief period of postoperative monitoring in the recovery room patient is transferred back to his bed on the floor for continued IV antibiotics and medical management. Dressing to remain clean dry intact until first dressing change tomorrow. Patient okay to weight-bear as tolerated to the left foot in postop shoe. He is encouraged to elevate the left lower extremity whenever possible and avoid sitting with feet in a dependent position for an extended period of time. Minimize weightbearing when possible. I attest to the content of the Intraoperative Record and any orders documented therein. Any exceptions are noted below.
--- NOTE | 2025-07-28 08:12 | Hospitalist Progress Note ---
"Date of Service July 28, 2025 Assessment & Plan (1) Cellulitis of left foot: Plan 34-year-old male PMHx HSV, tinea pedis, and ED presenting for wound to the top of his L foot. His ED evaluation is significant for leukocytosis of 17.2 but with normal lactate, procalcitonin, and CK. L foot CT revealed subcutaneous edema and area that may represent phlegmon versus abscess. Patient was admitted for IV antibiotics for cellulitis and possible developing abscess versus phlegmon. #Cellulitis of left foot | ? Spider bite vs. 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 Not meeting criteria for sepsis at admission, mildly tachycardic on and off, but otherwise hemodynamically stable. Pain well controlled. No additional symptoms. Received Ceftriaxone, Daptomycin, and 2L NSS in ED. Leukocytosis, WBC trend: 17.2 -> 14.2 -> 10.64 CT L foot extensive subcutaneous edema and area that may represent phlegmon versus abscess Acetaminophen as needed for fever/pain Zosyn 4.5 mg IV q8h Daptomycin 500 mg IV q24h Daily wound care Wound care nurse consult appreciated Podiatry consult appreciated in the setting of potential necrosis from spider bite Underwent I&D with Dr. Cartagena on 07/27 Recommending patient stay in the hospital until POD #2 to reevaluate wound on 07/29 F/u in the wound care center 08/07/2025 Follow current blood/wound cultures Wound culture on 07/26 resulted with pansensitive Staphylococcus aureus Aerobic/anaerobic wound culture drawn 07/27 in the OR still pending at this time, but preliminary results show Staphylococcus aureus #HSV- Valacyclovir - continue at admission, follow renal function, BMP am #ED- Tadalafil - HOLD Dispo: Continued stay on MedSurg Hopeful discharge on 07/29 or 07/30 pending finalized wound cultures and reevaluation of wound by podiatry VTE Prophylaxis: Lovenox This document was dictated utilizing [employer]. Please excuse any grammatical errors that may be secondary to use of this software. Admission and Anticipated Discharge Date Admission Date: July 26, 2025 Subjective Mr. Taylor reports he is doing well this morning after his procedure yesterday. He still reports 4 out of 10 pain on the dorsal aspect of his left foot with movements, but no pain at rest. He was able to ambulate throughout the hallways last night, and did not have any difficulty. No lightheadedness or dizziness with ambulation. No fevers overnight. He reports Tylenol has been controlling his pain. No prior history of MRSA infections. ROS: Patient endorses mild pain on the dorsal aspect of the left foot. Patient denies fevers, chills, night sweats, ambulatory dysfunction, lightheadedness with walking, headache, chest pain, SOB, abdominal pain, N/V/D, pain in the left ankle, or pain extending up towards the knee. Review of Systems Review of Systems: See HPI above Physical Exam Physical Exam: General: no acute distress; pleasant affect; non-toxic appearing; well- nourished; cooperative; SpO2 94% on RA HEENT: normocephalic, atraumatic; no scleral icterus; PERRLA; vision and hearing grossly intact Neck: supple; no lymphadenopathy; trachea midline Skin: warm, dry without signs of tenting; no cyanosis; no rashes, bruising, lesions, or erythema noted CV: chest wall NTP; RRR; S1/S2 normal; no murmurs/rubs/gallops; pulses intact and symmetric at radial, DP, and PT Lungs: no acute respiratory distress; symmetrical chest wall expansion; clear breath sounds across all lung johnson w/o adventitious sounds; no wheezing ABD: Soft, NTP; BS present; no rebound/guarding; no distention MSK: no tics or fasciculations; no edema noted in the LEs b/l, nonerythematous Left foot: Left foot newly wrapped; edema appreciated in the dorsal aspect of the foot; mildly TTP over incision site; no lymphangitis or streaking extending up the leg; patient demonstrates ability to wiggle toes, plantarflex, and dorsiflex with 5/5 strength with active; NV intact; patient can fully flex and extend the left knee without difficulty or strength deficits Neuro: A&Ox3; normal mood and affect; fluent speech; no focal deficits; patient reports sensation is intact and symmetric in lower extremities bilaterally/feeling touch at the toes Results & Data Results & Data Vital Signs (Past 12 Hours) Vital Signs Temp Pulse Resp BP Pulse Ox O2 Del Method 07/28/25 07:42 36.7 C 89 16 137/86 94 Room Air 07/28/25 03:00 36.6 C 63 18 122/74 97 Room Air 07/27/25 23:00 36.8 C 92 H 18 126/74 96 Room Air PG Care Time/CCT Total # of Minutes Spent Total Time Spent with Patient: Total time spent is greater than 50% in coordination of care (as documented) at patient's floor/unit and/or counseling patient: [place] [address] SUB INP/OBS CARE 2/35MIN Patient Type Established History Comprehensive Exam Comprehensive Medical Decision Making Moderate Complexity Diagnoses Cellulitis of left foot L03.116"
[2025-07-28 08:43] LABS: Hematocrit (blood only) 43.2 % (42.0-52.0); Hemoglobin 14.9 g/dl (14.0-18.0); Immature Granulocytes # (auto) 0.04 K/uL (0.01-0.20); Immature Granulocytes % (auto) 0.4 %; Mean Corpuscular Hemoglobin 29.5 pg (25.0-34.0); Mean Corpuscular Volume 85.5 fL (80.0-100.0); Platelet Count 277 K/uL (130-400); RDW Standard Deviation 39.5 fL (36.4-46.3); Red Blood Count 5.05 M/uL (4.70-6.10); White Blood Count 10.64 K/ul (4.8-10.8)
[2025-07-28 08:59] LABS: Anion Gap 7.0 (3-11); Blood Urea Nitrogen 9.0 mg/dl (6-23); Calcium 9.3 mg/dl (8.6-10.3); Carbon Dioxide 25.0 mmol/L (21-32); Chloride 104.0 mmol/L (98-107); Creatinine Clr Calc Pharmacy 125.4 ml/min; Glucose 121.0 mg/dl (70-99(Fasting)); Potassium 3.9 mmol/L (3.5-5.1); Sodium 136.0 mmol/L (136-145)
--- NOTE | 2025-07-28 13:58 | Podiatry Progress Note ---
Date of Service July 28, 2025 Assessment & Plan (1) Failure of outpatient treatment: (2) Cellulitis: (3) Abscess of left foot: (4) Cellulitis of left foot: Plan Postop day 1 status post I&D of the left foot. No further purulent drainage from the left foot. Erythema and edema persist but appears to be resolving. - Surgical dressing changed in aseptic fashion. Packing is removed wound is flushed with normal sterile saline dried and repacked with quarter inch iodoform packing gauze followed by 4 x 4 fluff gauze ABD pad and Gladys and an Jordan bandage. - Order placed for postop shoe. Patient to wear postop shoe at all times while ambulating. Okay to weight-bear as tolerated in postop shoe. - Left foot culture 07/26/2025: Final result with pansensitive Staph aureus. Intraoperative left foot culture preliminary result growing Staph aureus. - Leukocytosis resolved with white blood count at 10.64 today down from 14.2 on 07/27/2025. - Continues IV Zosyn and daptomycin. Would recommend patient remain in house at least until postop day 2 for reevaluation of wound. As long as he remains stable at that time he is okay for discharge from podiatry standpoint. Discussed dressing changes with patient today and he feels that he be comfortable changing the dressing once daily. Should schedule for follow-up in the wound care center 08/07/2025. Admission and Anticipated Discharge Date Admission Date: July 26, 2025 Subjective Patient seen resting comfortably in hospital bed postop day 1 status post I&D of the left foot. Reports minimal discomfort to the left foot. He has been able to weight-bear with minimal difficulty. Dressing remains clean dry and intact. Denies nausea vomiting fever chills. Review of Systems Review of Systems: Denies nausea, vomiting, fever, chills, shortness of breath, chest pain. Reports mild to moderate pain in the left foot. Physical Exam Physical Exam: Const: Appears well developed and well nourished. No signs of acute distress present. CV: Extremities: No cyanosis or edema. Capillary refill time is less than 2 seconds all digits of the bilateral foot. Posterior tibial and dorsalis pedis pulses are palpable bilateral. Neuro: Sensation intact to light touch in all areas of the foot and ankle. Psych: Mood/Affect: Mood is normal. Affect is normal. Cognition: Orientation is intact to person, place and time. Focused lower extremity musculoskeletal exam: Leg: No pain with compression of the calf muscle. Ankles: Normal to inspection and palpation. No swelling bilaterally. No tenderness bilaterally. Motor strength is intact. Range of motion pain-free and unlimited. Feet: 1 day status post I&D of left foot wound. Patient has a 5 cm x 2 cm open wound to the dorsal aspect of the left foot with exposed deep soft tissue structures including tendon and vein. Resolving erythema and edema to the dorsum of the foot. No purulent drainage from the wound on palpation or surrounding soft tissues. Wound bed is dark in discoloration likely from application of vancomycin powder to the wound bed versus necrosis. No lymphangitis or streaking. Results & Data Results & Data Vital Signs (Past 12 Hours) Vital Signs Temp Pulse Pulse Resp BP Pulse Ox O2 Del Method 07/28/25 13:47 36.6 C 91 H 14 134/82 97 Room Air 07/28/25 12:49 37 C 82 14 125/70 97 Room Air 07/28/25 11:32 77 129/75 97 Room Air 07/28/25 07:42 36.7 C 89 16 137/86 94 Room Air 07/28/25 03:00 36.6 C 63 18 122/74 97 Room Air Coding Level of Care Code 50848 SUB INP/OBS CARE 2/35MIN Diagnoses Failure of outpatient treatment Z78.9 Cellulitis L03.90 Site of cellulitis: extremity Laterality: left Abscess of left foot L02.612 Cellulitis of left foot L03.116 (2) Cellulitis Site of cellulitis: extremity Laterality: left
[2025-07-29 07:10] LABS: Hematocrit (blood only) 46.3 % (42.0-52.0); Hemoglobin 15.1 g/dl (14.0-18.0); Immature Granulocytes # (auto) 0.03 K/uL (0.01-0.20); Immature Granulocytes % (auto) 0.3 %; Mean Corpuscular Hemoglobin 28.0 pg (25.0-34.0); Mean Corpuscular Volume 85.9 fL (80.0-100.0); Platelet Count 294 K/uL (130-400); RDW Standard Deviation 39.6 fL (36.4-46.3); Red Blood Count 5.39 M/uL (4.70-6.10); White Blood Count 9.65 K/ul (4.8-10.8)
[2025-07-29 07:36] LABS: Anion Gap 10.0 (3-11); Blood Urea Nitrogen 12.0 mg/dl (6-23); Calcium 9.5 mg/dl (8.6-10.3); Carbon Dioxide 25.0 mmol/L (21-32); Chloride 104.0 mmol/L (98-107); Creatinine Clr Calc Pharmacy 124.1 ml/min; Glucose 89.0 mg/dl (70-99(Fasting)); Potassium 3.6 mmol/L (3.5-5.1); Sodium 139.0 mmol/L (136-145)
[2025-07-29 08:04] VITALS: BP 128/78; PULSE 82; RESP 16; TEMP 97.7; O2SAT 97
--- NOTE | 2025-07-29 08:50 | Discharge Summary ---
Discharge Summary Date of Service July 29, 2025 Principal Dx & Hospital Course #1 = Principal Diagnosis (1) Cellulitis of left foot: Plan 34-year-old male PMHx HSV, tinea pedis, and ED presenting for wound to the top of his L foot. His ED evaluation is significant for leukocytosis of 17.2 but with normal lactate, procalcitonin, and CK. L foot CT revealed subcutaneous edema and area that may represent phlegmon versus abscess. Patient was admitted for IV antibiotics for cellulitis and possible developing abscess versus phlegmon. #Cellulitis of left foot | ? Spider bite vs. staph infection History worsening skin wound to top of L foot, unclear if insect bite, expanding erythema x 3-4 days [employer]UMENT [employer]. Not meeting criteria for sepsis at admission, mildly tachycardic on and off, but otherwise hemodynamically stable. Pain well controlled. No additional symptoms. Received Ceftriaxone, Daptomycin, and 2L NSS in ED. Leukocytosis, WBC trend: 17.2 -> 14.2 -> 10.64 -> 9.65 CT L foot extensive subcutaneous edema and area that may represent phlegmon versus abscess Acetaminophen as needed for fever/pain Antibiotics while in the hospital: Zosyn 4.5 mg IV q8h x 3 days Daptomycin 500 mg IV q24h x 3 days Wound care nurse consult appreciated Podiatry consult appreciated Underwent I&D with Dr. Cartagena on 07/27 Wound culture on 07/26 resulted with pansensitive Staphylococcus aureus Aerobic/anaerobic wound culture drawn 07/27 in the OR again revealed pansensitive Staphylococcus aureus Will plan to discharge patient on cephalexin 500 mg QID x 7 additional days Patient received education from podiatry on how to change dressing daily Patient provided with starter supplies upon discharge (Curlex, saline, gauze, etc.) Follow-up appointment with the wound care center on 08/07/2025 #HSV- Valacyclovir - continue at admission, follow renal function, BMP am #ED- tadalafil as needed Day of discharge 07/29: VSS Mr. Taylor reports he does not have any difficulty getting around on his left foot. While he says it is "not comfortable" he has been able to get up and use the restroom independently, and does not have pain on the bottom of the foot. He rates the pain on the top of his foot as a constant 4 out of 10, but does believe it is bearable, and does not want any strong pain medications upon discharge. Overall, he feels ready to return home at this time. ROS: Patient endorses mild pain on the top of the dorsal aspect of the left foot. Patient denies fevers, chills, night sweats, chest pain, SOB, abdominal pain, N/V/D, rashes, red streaking up the leg, pain in the left ankle, or numbness or tingling in the left foot. Disposition: Discharge home This document was dictated utilizing [employer]. Please excuse any grammatical errors that may be secondary to use of this software. Notes For Next Care Provider Patient hospitalized for an infection on the top of his left foot, potentially caused by a spider bite versus staph infection. He received IV daptomycin x 3 days in the hospital and underwent an I&D with Dr. Cartagena podiatry on 07/27. Upon discharge, will be sending him home on cephalexin 500 mg capsules QID x 7 additional days. He will need to follow-up with the wound care clinic upon discharge. Admission HPI Per Admitting Provider 34-year-old male PMHx HSV, tinea pedis, and ED presenting for wound to the top of his L foot. Reports that 3-4 days [employer] he noticed that on the top of his L foot he had a wound that appeared erythematous and had a pinpoint black lesion in the center most portion of it. Over the course of days leading up to arrival, the erythema and edema continued to worsen. He was seen by urgent care the day [employer] and provided with Bactrim which he took a total of 3 doses of so far. He states that he does not recall injury or an insect/spider bite to the area. He does keep his work boots on the landing strip outside of his home door, in the garage, but always has socks on prior to placing his foot in the boots. He denies know tick bites. He does admit to chills but no documented fevers. Took IBU and Advil ~ 1200 the day of arrival. Reports the discomfort is manageable, and he does not have any numbness/tingling to his LLE (or elsewhere). He has not had any calf pain or edema bilaterally. Overall, feels well. 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 He is able to ambulate on the limb without difficulties. Denies CP, SOB, palpitations, abdominal pain, N/V/D/C, fevers, URI symptoms, LUTS, weakness, syncope, or falls. He has not had this happen before. ED evaluation reveals CBC with leukocytosis to 17.2, H&H stable; PT/INR WNL; CMP WNL with exception of glucose 109; lactate 1.7; CK1 65; procalcitonin 0.02; L foot CT extensive subcutaneous edema of the dorsum of the foot, subcutaneous area of fluid may represent phlegmon versus developing abscess; EKG sinus tachycardia with possible LAE at 115 bpm.; Provided with 2L NSS, daptomycin 500 mg IV, and ceftriaxone 2 g IV in ED. Please see Dr. Antunez's attestation for adjustments/additions to treatment plan. Admission Exam Per Admitting Provider General: No acute distress Skin: Warm and dry; LLE with erythematous and edematous lesion on dorsum of foot, no streaking (see image) Head: Normocephalic, atraumatic Eyes: PERRL, conjunctivae clear, sclera non-icteric ENT: External ear and ear canal without swelling; nose atraumatic; good dentition, tongue normal appearance, pharynx normal Neck: Supple, no LAD Cardio: RRR, no M/G/R, S1 and S2 normal Resp: No respiratory distress, Lungs CTA in all lobes bilaterally, no wheezes, rales, or rhonchi Abdomen: Soft, symmetric, nontender; No masses or hepatosplenomegaly; Bowel sounds normoactive MSK: No deformities; pulses palpable and equal; mild LLE edema at foot at site of wound; no calf tenderness or calf size discrepancies Neuro: Awake, alert; Sensation intact bilaterally; CN grossly intact Psych: Appropriate mood and affect; good judgement and insight. Discharge Exam General: no acute distress; pleasant affect; non-toxic appearing; well- nourished; cooperative; SpO2 97% on RA HEENT: normocephalic, atraumatic; no scleral icterus; PERRLA; vision and hearing grossly intact Neck: supple; no lymphadenopathy; trachea midline Skin: warm, dry without signs of tenting; no cyanosis; no rashes, bruising, lesions, or erythema noted CV: chest wall NTP; RRR; S1/S2 normal; no murmurs/rubs/gallops; pulses intact and symmetric at radial, DP, and PT Lungs: no acute respiratory distress; symmetrical chest wall expansion; clear breath sounds across all lung johnson w/o adventitious sounds; no wheezing ABD: Soft, NTP; BS present; no rebound/guarding; no distention MSK: no tics or fasciculations; no edema noted in the LEs b/l, nonerythematous Left foot: Left foot newly wrapped; edema appreciated in the dorsal aspect of the foot; mildly TTP over incision site; no lymphangitis or streaking extending up the leg; patient demonstrates ability to wiggle toes, plantarflex, and dorsiflex with 5/5 strength with active; NV intact; patient can fully flex and extend the left knee without difficulty or strength deficits Neuro: A&Ox3; normal mood and affect; fluent speech; no focal deficits; patient reports sensation is intact and symmetric in lower extremities bilaterally/feeling touch at the toes Discharge Plan Discharge Items Patient Disposition: Home - Self-Care Reason For Visit: SPIDER BITE ON L FOOT Discharge Diagnosis: Cellulitis of the left foot, left foot abscess Condition on Discharge: Fair Activity: As commented below Activity Comment: Gradually increase activity as tolerated Weightbearing: Left weightbearing Weightbearing Comment: Okay to weight-bear on the left foot as tolerated Non-emergency contact: Primary Care Provider Call non-emergency contact if: you have any medication questions, your symptoms worsen, your pain is not controlled and you have a fever Follow-up/Referrals: Dorian Cottrell, [Primary Care Provider] - 08/05/25 1:00 pm Diet: Regular Addtl Attending Provider Instructions: You were hospitalized at [facility] from 07/26 - 07/29 for an infection on the top of your left foot. On arrival, your blood work showed an elevated white blood cell count at 17 (normal reference range 5-11) indicating an acute infection. Imaging of your left foot showed extensive swelling with an area of fluid (abscess) measuring 2.4 x 1.2 cm on top of the foot. You underwent a procedure called an "incision and drainage" with our podiatry team (Dr. Cartagena). Following this procedure, your white blood cell count returned to normal at 9.65. Given your vital signs are stable, and you report that your pain is well-controlled, we feel that you are safe to return home at this time with oral antibiotics. New prescription on discharge: Cephalexin (i.e. "Keflex") 500 mg tablets 4 times daily x 7 additional days This antibiotic was chosen based on sensitivities obtained from wound cultures taken in the hospital. It is recommended that you change the dressing on your left foot daily. Some starter supplies will be provided to you upon discharge. For pain control, we recommend you that you take Tylenol 500 mg tablets every 4-6 hours as needed for pain; do not exceed more than 3000 mg of Tylenol daily. If this does not cover your pain, you may benefit from rotating and ibuprofen 200 mg tablets (in lieu of the Tylenol) every 4-6 hours. Please plan to follow-up with your PCP in the next 7 to 10 days for transitional care appointment. We are also working to set you up with an appointment with the wound care clinic on August 07; please be on the look out for correspondence, and reach out to wound care clinic in 2 to 3 days if you have not heard anything. If you develop any new or worsening symptoms, such as fever, chills, loss of function in the left foot, pain extending up your leg to the ankle/knee, chest pain, trouble breathing, please return to the Emergency Department immediately. It was a pleasure taking care of you. Please reach out with any questions or concerns. Sincerely, The Hospital medicine team at [facility] Pending Studies at Discharge: No Stand-Alone Forms: My [facility], Work/School Release Medications and DC Order Prescriptions: New cephalexin 500 mg capsule 500 mg PO QID 7 Days Qty: 28 0RF Rx Instructions: Take 1 capsule by mouth 4 times daily Continued valacyclovir 1 gram tablet 1,000 mg PO DAILY Qty: 90 3RF Rx Instructions: take 1 tab daily for suppressive therapy tadalafil [Cialis] 10 mg tablet 10 mg PO DAILY PRN (Reason: sexual activity) Qty: 6 5RF Rx Instructions: administer approximately 30min before sexual activity; do not use more than 1 dose per 24hrs clotrimazole 1 % cream 1 applic topical BID PRN (Reason: Itching) Discontinued sulfamethoxazole-trimethoprim 800-160 mg tablet 1 tab PO BID Discharge Orders: Discharge Order (Routine); Ordered 07/29/25 Ordered By: Aric Garcia/Other Patient Handouts: Cellulitis Dc Admission Data Admit Date/Time: 07/26/25 19:52 Attending Provider: Yury Menendez Admit Provider: Kelly Antunez Primary Care Provider: Dorian Cottrell Other Providers: Kelly Antunez; Paul Cartagena Hospital Stay Data Consultations 07/26/25 19:32 ED Decision to Admit Stat 07/27/25 09:59 Consult Podiatry Routine Procedures Performed Operation Date: 07/27/25 09:55 Actual Procedures p Left Foot Incision and Drainage(Left) - Paul Cartagena DPM Diagnostic Imagining Performed 07/26/25 17:20 CT foot LT w con Stat Pending Results Patient Have Any Pending Studies at Discharge: No Discharge Instructions Given to Patient (Per Discharging Provider) You were hospitalized at [facility] from 07/26 - 07/29 for an infection on the top of your left foot. On arrival, your blood work showed an elevated white blood cell count at 17 (normal reference range 5-11) indicating an acute infection. Imaging of your left foot showed extensive swelling with an area of fluid (abscess) measuring 2.4 x 1.2 cm on top of the foot. You underwent a procedure called an "incision and drainage" with our podiatry team (Dr. Cartagena). Following this procedure, your white blood cell count returned to normal at 9.65. Given your vital signs are stable, and you report that your pain is well-controlled, we feel that you are safe to return home at this time with oral antibiotics. New prescription on discharge: Cephalexin (i.e. "Keflex") 500 mg tablets 4 times daily x 7 additional days This antibiotic was chosen based on sensitivities obtained from wound cultures taken in the hospital. It is recommended that you change the dressing on your left foot daily. Some starter supplies will be provided to you upon discharge. For pain control, we recommend you that you take Tylenol 500 mg tablets every 4-6 hours as needed for pain; do not exceed more than 3000 mg of Tylenol daily. If this does not cover your pain, you may benefit from rotating and ibuprofen 200 mg tablets (in lieu of the Tylenol) every 4-6 hours. Please plan to follow-up with your PCP in the next 7 to 10 days for transitional care appointment. We are also working to set you up with an appointment with the wound care clinic on August 07; please be on the look out for correspondence, and reach out to wound care clinic in 2 to 3 days if you have not heard anything. If you develop any new or worsening symptoms, such as fever, chills, loss of function in the left foot, pain extending up your leg to the ankle/knee, chest pain, trouble breathing, please return to the Emergency Department immediately. It was a pleasure taking care of you. Please reach out with any questions or concerns. Sincerely, The Hospital medicine team at [facility] Total Time Total Time Spent Total Time Spent (In Minutes): 25 [place] [address] IN/OBS DISCH 30 MIN/LESS Patient Type Established History Comprehensive Exam Comprehensive Medical Decision Making Moderate Complexity Diagnoses Cellulitis of left foot L03.116
== END 2025-07-29 10:55 | disposition home or self-care (01) | DRG 603 ==
LOC: ED 16:44 → SUATTDRO 19:52 → 3N 19:52